=== PATIENT | male | born 2000 | race Caucasian/White ===

== ENCOUNTER 2020-09-02 16:38 | Emergency (ER) | payer OTHER ==
[2020-09-02] MEDS ORDERED: IBUPROFEN600 MG PO (23:46)
== END 2020-09-03 00:39 | disposition home or self-care (01) ==
LOC: ER1 16:38
DX: S61.411A Laceration without foreign body of right hand, initial encounter (principal); S63.502A Unspecified sprain of left wrist, initial encounter; S20.412A Abrasion of left back wall of thorax, initial encounter; Z23 Encounter for immunization; V29.40XA Motorcycle driver injured in collision with unspecified motor vehicles in traffic accident, initial encounter; Y92.410 Unspecified street and highway as the place of occurrence of the external cause; Y99.8 Other external cause status
CPT/HCPCS: 12001; 29125; 71101; 73100; 73130; 90471; 90715; 99283

== ENCOUNTER 2020-10-02 13:32 | Emergency (ER) | payer OTHER ==
[~2020-10-02 13:32] MED LIST: IBUPROFEN600 MG PO
[2020-10-02] MEDS ORDERED: NAPROSYN500 MG PO (17:23)
== END 2020-10-02 17:29 | disposition home or self-care (01) ==
LOC: ER1 13:32
DX: S70.212A Abrasion, left hip, initial encounter (principal); Z88.7 Allergy status to serum and vaccine; V49.40XA Driver injured in collision with unspecified motor vehicles in traffic accident, initial encounter; Y92.410 Unspecified street and highway as the place of occurrence of the external cause
CPT/HCPCS: 73502; 99283

== ENCOUNTER 2021-07-26 19:01 | Emergency (ER) | payer OTHER ==
[~2021-07-26 19:01] MED LIST changes: +NAPROSYN500 MG PO
[2021-07-26 20:33] LABS: HEMOGLOBIN 15.6 gm/dl (14.0-17.5); RED BLOOD COUNT 4.91 M/UL (4.20-5.50)
[2021-07-26 20:53] LABS: BUN/CREATININE RATIO 13 (0-10)
[2021-07-27] MEDS ORDERED: BACTRIM DS TAB1 EACH PO (01:04)
== END 2021-07-27 01:16 | disposition home or self-care (01) ==
LOC: ER1 19:01
PROVIDERS: Physician Assistant
DX: L02.413 Cutaneous abscess of right upper limb (principal); L03.113 Cellulitis of right upper limb; Z88.7 Allergy status to serum and vaccine
CPT/HCPCS: 10060; 80053; 83605; 85025; 85652; 86140; 87040; 87070; 87077; 87186; 87205; 99283